=== PATIENT | female | born 1990 ===

== ENCOUNTER 2020-01-21 22:27 | Emergency (ER) | payer OTHER ==
[~2020-01-21] VITALS: Ht 177.8 cm; Wt 95.5 kg
[2020-01-21] MEDS ORDERED: METOCLOPRAMIDE 5 MG/ML, 2ML ONE (22:42)
[2020-01-21] MEDS ORDERED: PLEASE ENTER ALLERGIES MC SCH (23:00)
[2020-01-21] MEDS ORDERED: SODIUM CHLORIDE FLUSH 10ML SYR IVF ONE (23:00)
[2020-01-21] MEDS ORDERED: SODIUM CHLORIDE 0.9% 1,000ML IVBOLUS ONE (23:00)
[2020-01-21] MEDS ORDERED: METOCLOPRAMIDE 5 MG/ML, 2ML IVPush ONE (23:00)
--- NOTE | 2020-01-21 23:03 | NUR ---
PT CAME INTO ED TONIGHT DUE TO DM T1 AND ATE THEN BEGAN VOMITTING AND HAVING ABDOMINAL PAIN. PT STATES HER GLUCOSE WAS 300. PT RESTING IN GURNEY, ANOx4, GROSS NEURO INTACT. ABDOINAL CRAMPING AND PT STATES SHE TOOK A ZOFRAN PRIOR TO COMING IN BUT THINKS SHE THREW THAT UP TOO. PT RESP WNL. VSS. WCTM. PT PLACED ON BP/SPO2 MONITORING. WAITING ON ADDITIONAL LAB RESULTS. PT MEDICATED PER AUG
[2020-01-21 23:04] LABS: BASOPHILS # (AUTO) 0.04 x10^3/uL (0-0.1); BASOPHILS % (AUTO) 1 % (0-1); EOSINOPHILS # (AUTO) 0.14 x10^3/uL (0-0.4); EOSINOPHILS % (AUTO) 2 % (1-7); LYMPHOCYTES # (AUTO) 2.23 x10^3/uL (1-3.4); LYMPHOCYTES % (AUTO) 26 % (22-44); MD NO; MEAN CORPUSCULAR HEMOGLOBIN 31.5 pg (27.0-34.8); MEAN CORPUSCULAR HGB CONC 32.8 g/dL (32.4-35.8); MEAN CORPUSCULAR VOLUME 95.9 fL (80-100); MEAN PLATELET VOLUME 7.2 fL (7.4-10.4); MONOCYTES # (AUTO) 0.69 x10^3/uL (0.2-0.8); MONOCYTES % (AUTO) 8 % (2-9); NEUTROPHILS % (AUTO) 64 % (42-75); PLATELET COUNT 293 x10^3/uL (130-400); RED BLOOD COUNT 4.02 x10^6/uL (3.82-5.3)
[2020-01-21 23:16] LABS: ALANINE AMINOTRANSFERASE 27 U/L (12-78); ALBUMIN 3.4 g/dL (3.4-5.0); ANION GAP 5 mmol/L (5-15); CALCIUM 8.4 mg/dL (8.5-10.1); CHLORIDE 106 mmol/L (98-107); CREATININE 0.69 mg/dL (0.55-1.02)
--- NOTE | 2020-01-21 23:16 | NUR ---
PT AMBULATED TO AND FROM BATHROOM WITH A SMOOTH AND STEADY GAIT, NAD, UA SENT TO LAB, WCTM. PECK FOR LAB RESULTS.
[2020-01-21 23:18] LABS: ALKALINE PHOSPHATASE 76 U/L (45-117); BILIRUBIN,TOTAL 0.2 mg/dL (0.2-1.0); TOTAL PROTEIN 6.9 g/dL (6.4-8.2)
[2020-01-21 23:22] LABS: ACETONE, SERUM Negative (Negative)
[2020-01-21 23:28] LABS: MICROSCOPIC NOT IND
[2020-01-22] MEDS ORDERED: ONDANSETRON 2MG/ML, 2ML ONE (00:11)
--- NOTE | 2020-01-22 00:14 | NUR ---
PT STATES "MY STOMACH IS JUST IN PAIN" AND IS NAUSEATED AND DRY HEAVING. PT MEDICATED PER AUG. PT TO BE DC'D WHEN ABL ETO PASS PO CHALLENGE. ABHISHEK PERES. ANDREA.
[2020-01-22] MEDS ORDERED: ONDANSETRON 2MG/ML, 2ML IVPush ONE (00:30)
[2020-01-22] MEDS ORDERED: MORPHINE SULFATE 4 MG/ML, 1ML ONE (00:48)
--- NOTE | 2020-01-22 00:51 | NUR ---
PT C/O INCREASING ABDOMINAL PAIN. MEDICATED PER AR, NAD, WCTM. WAITING FOR PT TO BE ABLE PO CHALLENGE.
[2020-01-22] MEDS ORDERED: MORPHINE SULFATE 4 MG/ML, 1ML IVPush PRN (01:00)
[2020-01-22 01:32] VITALS: BP 138/78
--- NOTE | 2020-01-22 01:34 | NUR ---
Patient given discharge instructions and they have confirmed that they understand the instructions. Patient ambulatory with steady gait. NAD, VSS. Pt denies additional needs at this time, questions answered appropriately. no pt belongings left in room after dc.
== END 2020-01-22 01:42 | disposition home or self-care (01) ==
LOC: ED 01-22 01:00
DX: R10.84 Generalized abdominal pain (principal); R11.2 Nausea with vomiting, unspecified; E10.65 Type 1 diabetes mellitus with hyperglycemia; E10.10 Type 1 diabetes mellitus with ketoacidosis without coma
CPT/HCPCS: 36415; 80053; 81003; 82010; 82803; 85025; 96361; 96374; 96375; 99285; J2270; J2405; J2765; J7030